=== PATIENT | male | born 1960 | race Caucasian/White ===

== ENCOUNTER 2019-04-23 11:10 | Emergency (ER) | payer OTHER ==
[2019-04-23 11:39] VITALS: O2SAT 98
[2019-04-23] MEDS ORDERED: LIDOCAINE HCL 2% MPF 10 ML SOL SC ONE (12:03)
[2019-04-23] MEDS ORDERED: HYDROMORPHONE 1 MG/ML SYRINGE IV ONE (12:03)
[2019-04-23] MEDS ORDERED: HYDROMORPHONE 1 MG/ML SYRINGE ONE (12:05)
[2019-04-23] MEDS ORDERED: LIDOCAINE HCL 2% MPF 10 ML SOL ONE (12:05)
[2019-04-23] MEDS ORDERED: CEFAZOLIN SODIUM 1 GM PDS 2 GM in SODIUM CHLORIDE 0.9% 100 ML 100 ML IV ONE (12:31)
[2019-04-23 12:34] VITALS: PULSE 60
[2019-04-23] MEDS ORDERED: CEFAZOLIN SODIUM 1 GM PDS ONE (12:34)
[2019-04-23] MEDS ORDERED: TDAP VACCINE 0.5 ML SUS IM ONE (12:35)
[2019-04-23] MEDS ORDERED: SODIUM CHLORIDE 0.9% 1000ML 1,000 ML IV SCH (12:45)
[2019-04-23 13:08] VITALS: BP 113/79; RESP 18
== END 2019-04-23 13:02 | disposition short-term general hospital (02) | DRG 605 ==
LOC: ED 11:10
DX: S51.812A Laceration without foreign body of left forearm, initial encounter (principal); W45.8XXA Other foreign body or object entering through skin, initial encounter
CPT/HCPCS: 73090; 90471; 90715; 96374; 99284; 99285; J0690; A6402; A6446; J1170